=== PATIENT | male | born 1980 | race Asian ===

== ENCOUNTER 2023-08-13 13:17 | Outpatient (CLI) | payer OTHER | END 2023-08-13 13:18 | disposition home or self-care (01) | LOC: BICRAD 13:17 | PROVIDERS: ATTEND Preventive Medicine Occupational Medicine | DX: M51.16 Intervertebral disc disorders with radiculopathy, lumbar region (principal); M25.371 Other instability, right ankle; M79.89 Other specified soft tissue disorders; M19.071 Primary osteoarthritis, right ankle and foot; M25.771 Osteophyte, right ankle; M25.871 Other specified joint disorders, right ankle and foot; M47.26 Other spondylosis with radiculopathy, lumbar region; M89.38 Hypertrophy of bone, other site; Z96.652 Presence of left artificial knee joint; Z98.890 Other specified postprocedural states | CPT/HCPCS: 72100 ==